=== PATIENT | male | born 1970 | race Caucasian/White ===

== ENCOUNTER 2017-09-07 00:57 | Emergency (ER) | payer OTHER ==
[~2017-09-07] VITALS: Ht 152.4 cm; Wt 81.7 kg
[~2017-09-07 00:57] MED LIST: FLOMAX0.4 MG PO; HYDROCODONE-APA1 TA1 PO; KEFLEX500 MG PO; LOSARTAN POTAS100 MG; NORCO 5-325 TA1 EACH PO; NORVASC10 MG
[2017-09-07 01:24] LABS: URINE BILIRUBIN NEGATIVE (Negative); URINE BLOOD 2+ (Negative); URINE CLARITY CLEAR; URINE COLOR YELLOW; URINE GLUCOSE-RANDOM NEGATIVE (Negative); URINE KETONES NEGATIVE (Negative); URINE LEUKOCYTES-REFLEX NEGATIVE (Negative); URINE NITRITE-REFLEX NEGATIVE (Negative); URINE PROTEIN NEGATIVE (Negative); URINE UROBILINOGEN 0.2 E.U./dl (0.2-1.0)
[2017-09-07 01:36] LABS: SQUAMOUS 0-3 Few /LPF (0-3)
[2017-09-07 01:41] LABS: HEMATOCRIT 41.5 % (42.0-52.0); HEMOGLOBIN 14.3 gm/dL (14.0-18.0); MCH 30.7 pg (26.0-34.0); MCHC 34.5 g/dL (28.0-37.0); MPV 7.8 fl. (7.2-11.1); NUCLEATED RBCS 0 /100WBC; PLATELET COUNT* 293 thou/uL (150-400); RBC 4.66 mil/uL (4.50-6.00); RDW-CV 13.4 % (10.5-14.5)
[2017-09-07 01:44] LABS: ABSOLUTE BASOPHILS 0.1 thou/uL (0.0-0.2); ABSOLUTE EOSINOPHILS 0.6 thou/uL (0.0-0.7); ABSOLUTE MONOCYTES 0.6 thou/uL (0.0-1.2); ABSOLUTE NEUTROPHILS 5.8 thou/uL (1.6-8.1); BASOPHILS 0.5 %; EOSINOPHILS 6.1 %; LYMPHOCYTES 29.5 %; MONOCYTES 6.1 %; POLYS 57.8 %
[2017-09-07 01:45] LABS: BACTERIA-REFLEX 1-9 Few /HPF (None Seen); CASTS None Seen /LPF (None Seen); CRYSTALS None Seen /LPF (None Seen); MUCUS 0-3 Light strn/LPF (None Seen); URINE RBC >20 Many /HPF (0-2); URINE WBC-REFLEX None Seen /HPF (0-5)
[2017-09-07 01:53] LABS: CALCIUM 8.3 mg/dL (8.5-10.1); CREATININE 1.2 mg/dL (0.6-1.3); POTASSIUM 3.8 mmol/L (3.5-5.1)
[2017-09-07 01:58] LABS: ALBUMIN 3.9 g/dL (3.4-5.0); TOTAL BILIRUBIN 0.3 mg/dL (<0.1-1.0)
[2017-09-07] MEDS ORDERED: ZOFRAN ODT4 MG PO (04:32)
[2017-09-07] MEDS ORDERED: HYDROCODON-ACE1 EAC7 PO (04:32)
[2017-09-07 05:02] VITALS: BP 118/76
== END 2017-09-07 05:06 | disposition home or self-care (01) ==
LOC: M.ERS 00:57
PROVIDERS: Personal Emergency Response Attendant
DX: N20.0 Calculus of kidney (principal); I10 Essential (primary) hypertension; Z88.5 Allergy status to narcotic agent; Z88.8 Allergy status to other drugs, medicaments and biological substances